=== PATIENT | female | born 1965 | race Caucasian/White ===

== ENCOUNTER 2017-11-30 06:28 | Emergency (ER) | payer SELFPAY ==
[~2017-11-30] VITALS: Ht 160 cm; Wt 93.4 kg
[2017-11-30 06:41] VITALS: Ht 160 cm; Wt 93.4 kg
[2017-11-30 07:36] VITALS: BP 119/80
[2017-11-30 07:54] LABS: microscopic required? NO
[2017-11-30 08:07] LABS: UA SPECIFIC GRAVITY <=1.005 (1.005-1.035); urine erythrocyte NEGATIVE (NEGATIVE)
== END 2017-11-30 09:44 | disposition home or self-care (01) ==
LOC: ED 06:28
PROVIDERS: Emergency Medicine
DX: R10.32 Left lower quadrant pain (principal); E11.65 Type 2 diabetes mellitus with hyperglycemia
CPT/HCPCS: 82962